=== PATIENT | female | born 1985 | race Caucasian/White ===

== ENCOUNTER 2024-05-23 17:56 | Emergency (ER) | payer MEDICAID ==
[~2024-05-23] VITALS: Ht 165.1 cm; Wt 114.0 kg
[2024-05-23 18:02] VITALS: O2SAT 97
[2024-05-23 18:05] VITALS: BP 139/90; PULSE 78; RESP 16; TEMP 37.00296; O2SAT 97
[2024-05-23 19:58] LABS: BASOPHILS % 0.5 % (0.0-2.0); EOSINOPHILS % 3.3 % (0.0-5.0); HEMATOCRIT. 40.5 % (36.0-48.0); HEMOGLOBIN. 13.8 g/dL (12.0-16.0); LYMPHOCYTES % 24.8 % (20.0-50.0); MEAN CORPUSCULAR HEMOGLOBIN 30.7 pg (28.0-32.0); MEAN CORPUSCULAR VOLUME 90.4 fL (81.0-99.0); MEAN PLATELET VOLUME 8.1 fl (7.4-10.4); MONOCYTES % 6.2 % (2.0-8.0); NEUTROPHILS % 65.2 % (40.0-76.0); PLATELET 281 x1000/uL (130-400); RED BLOOD CELL COUNT 4.48 mill/uL (4.2-5.4); RED CELL DISTRIBUTION WIDTH 13.7 % (11.6-14.6)
[2024-05-23 20:03] LABS: CHLORIDE 106 mEq/L (98-107); POTASSIUM 3.9 mEq/L (3.5-5.1); SODIUM 139 mEq/L (136-145)
[2024-05-23 20:04] LABS: CARBON DIOXIDE 27 mEq/L (21-32)
[2024-05-23 20:05] LABS: CALCIUM 9.5 mg/dL (8.7-10.4)
[2024-05-23 20:10] LABS: CREATININE 0.9 mg/dL (0.6-1.0); GLUCOSE 192 mg/dL (70-105); UREA NITROGEN BLOOD 10 mg/dL (9-23)
[2024-05-23 20:16] LABS: HCG SCREEN NEGATIVE
[2024-05-23 20:24] LABS: TROPONIN I HIGH SENSITIVITY < 4 ng/L (3.0-34)
== END 2024-05-23 19:45 | disposition home or self-care (01) ==
LOC: ER 17:56
DX: R20.2 Paresthesia of skin (principal); I49.9 Cardiac arrhythmia, unspecified; Z88.0 Allergy status to penicillin
CPT/HCPCS: 36415; 80048; 84484; 84703; 85025; 93005; 99284